=== PATIENT | male | born 1955 | race African-American/Black ===

== ENCOUNTER 2020-03-29 08:22 | Inpatient (IN) | payer OTHER ==
[~2020-03-29] VITALS: Ht 177.8 cm; Wt 56.2 kg
[2020-03-29] VITALS (22 sets, daily range): BP systolic 98–145; BP diastolic 51–79
[2020-03-29] MEDS ORDERED: PANTOPRAZOLE SODIUM 40 MG/VIAL IV STA (08:55)
[2020-03-29] MEDS ORDERED: FAMOTIDINE 20MG/2ML VIAL IV STA (08:55)
[2020-03-29] MEDS ORDERED: PANTOPRAZOLE 80 MG in SODIUM CHLORIDE 0.9% 100 ML IV STA (08:55)
[2020-03-29] MEDS ORDERED: SODIUM CHLORIDE 0.9% 1,000 ML IV ONE ×2 (08:55→09:29)
[2020-03-29] MEDS ORDERED: ONDANSETRON HCL 4MG/2ML INJ IM ONE (09:15)
[2020-03-29 09:36] LABS: BASOPHILS % 0.6 % (0.0-2.0); EOSINOPHILS % 1.2 % (0.0-5.0); HEMATOCRIT. 40.7 % (42.0-52.0); HEMOGLOBIN. 13.5 g/dL (14.0-18.0); LYMPHOCYTES % 28.9 % (20.0-50.0); MEAN CORPUSCULAR VOLUME 99.2 fL (80.0-94.0); MEAN PLATELET VOLUME 7.5 fl (7.4-10.4); MONOCYTES % 6.3 % (2.0-8.0); PLATELET 311 x1000/uL (130-400); RED BLOOD CELL COUNT 4.11 mill/uL (4.7-6.1); RED CELL DISTRIBUTION WIDTH 14.2 % (11.6-14.6)
[2020-03-29 09:39] LABS: CHLORIDE 107 mEq/L (98-107)
[2020-03-29 09:44] LABS: INR 1.1; PARTIAL THROMBOPLASTIN TIME 27.1 sec (23.4-31.0); PROTHROMBIN TIME 11.7 sec (9.6-11.0)
[2020-03-29] MEDS ORDERED: PANTOPRAZOLE SODIUM 40 MG/VIAL IV ONE (10:04)
[2020-03-29] MEDS ORDERED: NOREPINEPHRINE 4 MG in DEXT 5% WATER 246 ML IV ONE (12:15)
[2020-03-29] MEDS: NOREPINEPHRINE 4MG/250ML PMX 250 ML IV PRN (12:59)
[2020-03-29 14:41] LABS: TOTAL IRON BINDING CAPACITY 275 ug/dL (250-450)
[2020-03-29] MEDS ORDERED: MIDAZOLAM HCL 5 MG/5 ML VIAL ONE (15:01)
[2020-03-29] MEDS ORDERED: FENTANYL CITRATE/PF 50MCG/ML 2ML VIAL ONE (15:02)
[2020-03-29] MEDS ORDERED: MIDAZOLAM HCL 5 MG/5 ML VIAL IV PRN (15:07)
[2020-03-29] MEDS ORDERED: FENTANYL CITRATE/PF 50MCG/ML 2ML VIAL IV PRN (15:08)
[2020-03-29] MEDS ORDERED: DIAZEPAM 5 MG/ML 2ML CPJ IV PRN (15:16)
[2020-03-29] MEDS ORDERED: DIAZEPAM 5 MG/ML 2ML CPJ ONE (15:19)
[2020-03-29] MEDS: PANTOPRAZOLE SODIUM 40 MG/VIAL IV SCH (18:00)
[2020-03-29] MEDS ORDERED: DOPAMINE 400MG/250ML PREMIX 250 ML IV ONE (18:30)
[2020-03-29] MEDS: SUCRALFATE 1 G/10 ML UDC PO SCH ×2 (18:42→21:19)
[2020-03-29] MEDS ORDERED: IPRATROPIUM/ALBUTEROL 0.5-3(2.5)MG/3ML NEB HHN PRN (18:45)
[2020-03-29] MEDS ORDERED: HYDROCODONE/ACETAMINOPHEN 5/325MG TABLET PO PRN (18:45)
[2020-03-29] MEDS ORDERED: MAGNESIUM/ALUMINUM HYDROXIDE/SIMETHICONE 30ML UDC PO PRN (18:45)
[2020-03-29] MEDS ORDERED: ACETAMINOPHEN 325MG TABLET PO PRN (18:45)
[2020-03-29] MEDS ORDERED: DOCUSATE SODIUM 100MG CAPSULE PO PRN (18:45)
[2020-03-29 19:18] LABS: HEMATOCRIT 43.5 % (42.0-52.0); HEMOGLOBIN 14.6 g/dL (14.0-18.0)
[2020-03-29 19:19] LABS: FOLIC ACID (FOLATE) SERUM 12.5 ng/mL (>5.38)
[2020-03-29 19:29] LABS: TOTAL IRON BINDING CAPACITY 348 ug/dL (250-450)
[2020-03-29 22:25] LABS: CLARITY URINE CLEAR (CLEAR); COLOR URINE YELLOW (YELLOW); KETONES URINE NEGATIVE (NEGATIVE); LEUKOCYTE ESTERASE URINE NEGATIVE (NEGATIVE); NITRITE URINE NEGATIVE (NEGATIVE); OCCULT BLOOD URINE TRACE (NEGATIVE); PROTEIN URINE NEGATIVE (NEGATIVE); SPECIFIC GRAVITY URINE 1.012 (1.005-1.030); UROBILINOGEN URINE 0.2 E.U./dL (0.2-1.0)
[2020-03-29 22:37] LABS: *AMPHETAMINES SCREEN URINE NEGATIVE (NEGATIVE); *BARBITURATES SCREEN URINE NEGATIVE (NEGATIVE); *BENZODIAZEPINES SCREEN URINE PRESUMTIVE POSITIVE (NEGATIVE); *COCAINE SCREEN URINE NEGATIVE (NEGATIVE); METHADONE URINE SCREEN NEGATIVE (NEGATIVE)
[2020-03-29 22:39] LABS: CANNABINOID URINE SCREEN PRESUMTIVE POSITIVE (NEGATIVE); OPIATES URINE SCREEN NEGATIVE (NEGATIVE); PHENCYCLIDINE URINE SCREEN NEGATIVE (NEGATIVE)
[2020-03-30] VITALS (101 sets, daily range): BP systolic 62–162; BP diastolic 41–85
[2020-03-30] MEDS: NOREPINEPHRINE 4MG/250ML PMX 250 ML IV PRN (05:05)
[2020-03-30 06:10] LABS: BASOPHILS % 0.2 % (0.0-2.0); EOSINOPHILS % 0.1 % (0.0-5.0); HEMATOCRIT. 38.9 % (42.0-52.0); HEMOGLOBIN. 13.1 g/dL (14.0-18.0); LYMPHOCYTES % 13.1 % (20.0-50.0); MEAN CORPUSCULAR HEMOGLOBIN 30.7 pg (28.0-32.0); MEAN PLATELET VOLUME 7.6 fl (7.4-10.4); MONOCYTES % 4.2 % (2.0-8.0); NEUTROPHILS % 82.4 % (40.0-76.0); PLATELET 213 x1000/uL (130-400); RED BLOOD CELL COUNT 4.28 mill/uL (4.7-6.1); RED CELL DISTRIBUTION WIDTH 17.4 % (11.6-14.6)
[2020-03-30] MEDS: PANTOPRAZOLE SODIUM 40 MG/VIAL IV SCH ×2 (06:14→17:30)
[2020-03-30 06:23] LABS: CHLORIDE 110 mEq/L (98-107)
[2020-03-30 06:30] LABS: PHOSPHORUS 1.9 mg/dL (2.5-4.9)
[2020-03-30 06:31] LABS: LDL CHOLESTEROL 48 mg/dL (5-100)
[2020-03-30 06:32] LABS: HDL CHOLESTEROL 42 mg/dL (40-59)
[2020-03-30] MEDS ORDERED: SODIUM CHLORIDE 0.9% 500 ML IV ONE ×2 (08:26→08:30)
[2020-03-30] MEDS ORDERED: SODIUM CHLORIDE 0.9% 500 ML IV SCH (08:45)
[2020-03-30] MEDS: SUCRALFATE 1 G/10 ML UDC PO SCH ×4 (09:10→20:50)
[2020-03-30] MEDS ORDERED: MAGNESIUM 2 G PREMIX 50 ML IV SCH (11:00)
[2020-03-30] MEDS: SODIUM CHL 0.45% + KCL 20MEQ/L 1,000 ML IV SCH ×2 (11:02→20:51)
[2020-03-30] MEDS: DOPAMINE 400MG/250ML PREMIX 250 ML IV PRN ×2 (11:02→20:51)
[2020-03-30] MEDS ORDERED: SUCRALFATE 1 G/10 ML UDC PO SCH (12:50)
[2020-03-30] MEDS ORDERED: SODIUM PHOS,M-BASIC-D-BASIC 20 MM in DEXT 5% WATER 243.3333 ML IV SCH (16:00)
[2020-03-30] MEDS: ONDANSETRON HCL 4MG/2ML INJ IV PRN (18:01)
[2020-03-31] VITALS (96 sets, daily range): BP systolic 83–143; BP diastolic 42–88
[2020-03-31] MEDS: DOPAMINE 400MG/250ML PREMIX 250 ML IV PRN ×2 (05:48→15:31)
[2020-03-31] MEDS: PANTOPRAZOLE SODIUM 40 MG/VIAL IV SCH ×2 (05:48→17:29)
[2020-03-31] MEDS: SODIUM CHL 0.45% + KCL 20MEQ/L 1,000 ML IV SCH ×2 (05:49→18:43)
[2020-03-31 05:59] LABS: BASOPHILS % 0.4 % (0.0-2.0); EOSINOPHILS % 0.6 % (0.0-5.0); HEMATOCRIT. 43.2 % (42.0-52.0); HEMOGLOBIN. 14.7 g/dL (14.0-18.0); LYMPHOCYTES % 18.8 % (20.0-50.0); MEAN CORPUSCULAR HEMOGLOBIN 31.4 pg (28.0-32.0); MEAN CORPUSCULAR VOLUME 92.4 fL (80.0-94.0); MEAN PLATELET VOLUME 7.7 fl (7.4-10.4); MONOCYTES % 5.1 % (2.0-8.0); NEUTROPHILS % 75.1 % (40.0-76.0); PLATELET 218 x1000/uL (130-400); RED BLOOD CELL COUNT 4.68 mill/uL (4.7-6.1); RED CELL DISTRIBUTION WIDTH 16.6 % (11.6-14.6)
[2020-03-31 06:10] LABS: CHLORIDE 105 mEq/L (98-107)
[2020-03-31] MEDS: SUCRALFATE 1 G/10 ML UDC PO SCH ×4 (09:25→20:48)
[2020-03-31] MEDS: ONDANSETRON HCL 4MG/2ML INJ IV PRN (09:30)
[2020-03-31] MEDS ORDERED: CALCIUM GLUCONATE 1,000 MG in DEXT 5% WATER 90 ML IV NR (11:30)
[2020-04-01] VITALS (94 sets, daily range): BP systolic 54–153; BP diastolic 26–93
[2020-04-01] MEDS: DOPAMINE 400MG/250ML PREMIX 250 ML IV PRN ×3 (01:48→21:22)
[2020-04-01] MEDS: PANTOPRAZOLE SODIUM 40 MG/VIAL IV SCH ×2 (05:08→18:09)
[2020-04-01 05:48] LABS: BASOPHILS % 0.3 % (0.0-2.0); EOSINOPHILS % 0.8 % (0.0-5.0); HEMATOCRIT. 45.1 % (42.0-52.0); HEMOGLOBIN. 15.3 g/dL (14.0-18.0); LYMPHOCYTES % 18.3 % (20.0-50.0); MEAN CORPUSCULAR VOLUME 91.7 fL (80.0-94.0); MEAN PLATELET VOLUME 7.5 fl (7.4-10.4); MONOCYTES % 4.9 % (2.0-8.0); NEUTROPHILS % 75.7 % (40.0-76.0); PLATELET 233 x1000/uL (130-400); RED BLOOD CELL COUNT 4.92 mill/uL (4.7-6.1); RED CELL DISTRIBUTION WIDTH 16.1 % (11.6-14.6)
[2020-04-01 06:05] LABS: CHLORIDE 103 mEq/L (98-107)
[2020-04-01] MEDS: SODIUM CHL 0.45% + KCL 20MEQ/L 1,000 ML IV SCH ×2 (08:50→21:22)
[2020-04-01] MEDS: SUCRALFATE 1 G/10 ML UDC PO SCH ×4 (08:50→21:20)
[2020-04-01] MEDS: MIDODRINE HCL 2.5MG TABLET PO SCH ×3 (10:56→17:00)
[2020-04-01] MEDS ORDERED: SODIUM CHLORIDE 0.9% 500 ML IV ONE (12:30)
[2020-04-02] VITALS (103 sets, daily range): BP systolic 73–158; BP diastolic 36–97
[2020-04-02 05:55] LABS: BASOPHILS % 0.3 % (0.0-2.0); EOSINOPHILS % 1.6 % (0.0-5.0); HEMATOCRIT. 43.9 % (42.0-52.0); LYMPHOCYTES % 22.6 % (20.0-50.0); MEAN CORPUSCULAR HEMOGLOBIN 31.7 pg (28.0-32.0); MEAN CORPUSCULAR VOLUME 92.7 fL (80.0-94.0); MEAN PLATELET VOLUME 7.3 fl (7.4-10.4); MONOCYTES % 6.2 % (2.0-8.0); NEUTROPHILS % 69.3 % (40.0-76.0); PLATELET 242 x1000/uL (130-400); RED BLOOD CELL COUNT 4.74 mill/uL (4.7-6.1)
[2020-04-02] MEDS: PANTOPRAZOLE SODIUM 40 MG/VIAL IV SCH ×2 (05:57→17:25)
[2020-04-02] MEDS: MIDODRINE HCL 2.5MG TABLET PO SCH (08:23)
[2020-04-02] MEDS: SUCRALFATE 1 G/10 ML UDC PO SCH ×4 (08:23→20:26)
[2020-04-02 08:54] LABS: CHLORIDE 102 mEq/L (98-107)
[2020-04-02 09:03] LABS: PHOSPHORUS 2.5 mg/dL (2.5-4.9)
[2020-04-02] MEDS ORDERED: SODIUM CHLORIDE 0.9% 500 ML IV ONE (10:00)
[2020-04-02] MEDS ORDERED: POTASSIUM CHLORIDE 20MEQ TABLET SR PO NR (10:30)
[2020-04-02] MEDS: MAGNESIUM OXIDE 400MG TABLET PO SCH (11:05)
[2020-04-02] MEDS ORDERED: MIDODRINE HCL 5MG TABLET PO SCH (13:00)
[2020-04-02] MEDS: SODIUM CHL 0.45% + KCL 20MEQ/L 1,000 ML IV SCH (13:55)
[2020-04-02] MEDS: DOPAMINE 400MG/250ML PREMIX 250 ML IV PRN (16:33)
[2020-04-02] MEDS: MIDODRINE HCL 5MG TABLET PO SCH (16:37)
[2020-04-03] VITALS (94 sets, daily range): BP systolic 69–143; BP diastolic 32–77
[2020-04-03] MEDS: SODIUM CHL 0.45% + KCL 20MEQ/L 1,000 ML IV SCH (02:18)
[2020-04-03] MEDS: PANTOPRAZOLE SODIUM 40 MG/VIAL IV SCH ×2 (05:25→17:59)
[2020-04-03] MEDS: DOPAMINE 400MG/250ML PREMIX 250 ML IV PRN ×2 (06:08→21:09)
[2020-04-03 07:25] LABS: BASOPHILS % 0.6 % (0.0-2.0); EOSINOPHILS % 2.9 % (0.0-5.0); HEMATOCRIT. 43.4 % (42.0-52.0); HEMOGLOBIN. 14.6 g/dL (14.0-18.0); LYMPHOCYTES % 23.6 % (20.0-50.0); MEAN CORPUSCULAR HEMOGLOBIN 31.5 pg (28.0-32.0); MEAN CORPUSCULAR VOLUME 93.3 fL (80.0-94.0); MEAN PLATELET VOLUME 7.7 fl (7.4-10.4); MONOCYTES % 6.8 % (2.0-8.0); NEUTROPHILS % 66.1 % (40.0-76.0); PLATELET 261 x1000/uL (130-400); RED BLOOD CELL COUNT 4.65 mill/uL (4.7-6.1); RED CELL DISTRIBUTION WIDTH 15.9 % (11.6-14.6)
[2020-04-03 07:34] LABS: CHLORIDE 103 mEq/L (98-107)
[2020-04-03] MEDS: SUCRALFATE 1 G/10 ML UDC PO SCH ×4 (08:21→22:27)
[2020-04-03] MEDS: MAGNESIUM OXIDE 400MG TABLET PO SCH (08:21)
[2020-04-03] MEDS: FOLIC ACID 1MG TABLET PO SCH (08:22)
[2020-04-03] MEDS: MIDODRINE HCL 5MG TABLET PO SCH ×3 (08:22→17:59)
[2020-04-03] MEDS: THIAMINE HCL 100MG TABLET PO SCH (08:22)
[2020-04-03] MEDS: SODIUM CHLORIDE 0.9% 1,000 ML IV SCH ×2 (10:14→21:09)
[2020-04-03] MEDS: FLUDROCORTISONE ACETATE 0.1MG TABLET PO SCH (13:47)
[2020-04-04] VITALS (57 sets, daily range): BP systolic 72–141; BP diastolic 42–81
[2020-04-04] MEDS: PANTOPRAZOLE SODIUM 40 MG/VIAL IV SCH (05:20)
[2020-04-04] MEDS: SODIUM CHLORIDE 0.9% 1,000 ML IV SCH (05:22)
[2020-04-04 05:50] LABS: CHLORIDE 104 mEq/L (98-107)
[2020-04-04 06:09] LABS: BASOPHILS % 0.5 % (0.0-2.0); EOSINOPHILS % 3.5 % (0.0-5.0); HEMATOCRIT. 38.1 % (42.0-52.0); HEMOGLOBIN. 13.1 g/dL (14.0-18.0); LYMPHOCYTES % 20.7 % (20.0-50.0); MEAN CORPUSCULAR HEMOGLOBIN 31.6 pg (28.0-32.0); MEAN CORPUSCULAR VOLUME 91.8 fL (80.0-94.0); MEAN PLATELET VOLUME 7.6 fl (7.4-10.4); MONOCYTES % 6.3 % (2.0-8.0); PLATELET 247 x1000/uL (130-400); RED BLOOD CELL COUNT 4.16 mill/uL (4.7-6.1); RED CELL DISTRIBUTION WIDTH 16.1 % (11.6-14.6)
[2020-04-04] MEDS: SUCRALFATE 1 G/10 ML UDC PO SCH ×2 (07:47→12:42)
[2020-04-04] MEDS: MAGNESIUM OXIDE 400MG TABLET PO SCH (08:13)
[2020-04-04] MEDS: FOLIC ACID 1MG TABLET PO SCH (08:14)
[2020-04-04] MEDS: MIDODRINE HCL 5MG TABLET PO SCH ×2 (08:14→12:40)
[2020-04-04] MEDS: THIAMINE HCL 100MG TABLET PO SCH (08:14)
[2020-04-04] MEDS: FLUDROCORTISONE ACETATE 0.1MG TABLET PO SCH (08:14)
[2020-04-04] MEDS ORDERED: AMOX-494 MT (10:57)
[2020-04-04] MEDS ORDERED: MIDO10TA MT (10:57)
[2020-04-04] MEDS ORDERED: CLAR-44 MT (10:57)
[2020-04-04] MEDS ORDERED: OMEP20CA14 MT (10:57)
[2020-04-04] MEDS ORDERED: SUCR1TAB MT (10:58)
== END 2020-04-04 13:35 | disposition home or self-care (01) | DRG 241 ==
LOC: ER 08:22 → EDBEDREQ 10:41 → EDBEDREQTM 10:41 → EDBEDREQSVC 10:41 → EDBEDREQTM 11:22 → EDBEDREQ 11:22 → EDBEDREQSVC 12:08 → EDBEDREQTM 12:08 → ENRESERV 16:56 → ER 18:07 → CVICU 18:20
PROVIDERS: ADMIT Internal Medicine; ATTEND Internal Medicine
PROC: 06HY33Z Insertion of Infusion Device into Lower Vein, Percutaneous Approach (ICD-10-PCS; principal; 2020-03-29)
PROC: 30233N1 Transfusion of Nonautologous Red Blood Cells into Peripheral Vein, Percutaneous Approach (ICD-10-PCS; 2020-03-29)
PROC: 0DB78ZX Excision of Stomach, Pylorus, Via Natural or Artificial Opening Endoscopic, Diagnostic (ICD-10-PCS; 2020-03-29)
DX: K26.4 Chronic or unspecified duodenal ulcer with hemorrhage (principal); D64.9 Anemia, unspecified; E83.42 Hypomagnesemia; I47.1 Supraventricular tachycardia; J44.9 Chronic obstructive pulmonary disease, unspecified; R57.8 Other shock; K29.70 Gastritis, unspecified, without bleeding; I95.9 Hypotension, unspecified
CPT/HCPCS: 36415; 71045; 80048; 80053; 80061; 80305; 81003; 82270; 82607; 82728; 82746; 83540; 83550; 83735; 83880; 84100; 84443; 84484; 85014; 85018; 85025; 86677; 86850; 86900; 86920; 88305; 88313; 93005; 93306; 93970; 96374; 97110; 97116; 97162; 97166; 97530; 97535; 99285; C9113; J0610; J1265; J2250; J2405; J3010; J3475; J3480; J3490; J7030; J7050; J7060; P9016